=== PATIENT | female | born 1995 | race Caucasian/White ===

== ENCOUNTER 2024-02-18 16:46 | Inpatient (IN) | payer MEDICAID, SELFPAY ==
[2024-02-18] VITALS (29 sets, daily range): BP systolic 109–143; BP diastolic 58–92; PULSE 72–100; RESP 16–20; TEMP 36.9–37.2; O2SAT 88–100; BMI 27.6
--- NOTE | 2024-02-18 16:54 | HP.PCM.OB_ITS ---
HPI - General General Date of Admission: 02/18/24 Date of Service: 02/18/24 Chief Complaint: decreased movement HPI Narrative PAUL MARTÍNEZ, is a 28 F who presents with decreased movement for the last few days. Has not had any care this . Was seen in [place] on Jan 11. EDC by [facility]MP was 01/13/24. US in [place] stated per patient EDC of 02/02. Denies contractions, LOF or vaginal bleeding. Previous vaginal delivery x 3 at term. Cervix was 1-2 cm in [place]. Maternal Data Information Gestational age: 42 -45 PFSH PFSH Home Medications ?Medication ?Instructions ?Recorded ?Last Taken ?Type ferrous sulfate 325 mg (65 mg 325 mg PO DAILY 02/18/24 02/18/24 09:00 History iron) tablet (FeroSul) 325 mg vit no.95-ferrous 1 tab PO DAILY 02/18/24 02/18/24 09:00 History fumarate 28 mg-folic acid 800 mcg 1 TAB tablet () Allergy/AdvReac Type Severity Reaction Status Date / Time No Known Drug Allergies Allergy none Verified 02/18/24 16:57 History 4 Elective abortions Hx Para 3 Spontaneous abortions Hx # Term Pregnancies Ectopic pregnancies Hx # Pregnancies Multiple births # of living children NST FHR Rate Baby A Baseline: 130 Variability:: Moderate Accelerations:: 15 x 15 Decelerations:: None NST Reactive:: Yes FHR Category:: Category I Uterine Activity:: q 4 ROS Constitutional Constitutional: Denies fatigue, fever(s) or malaise Eyes Eyes: Denies change in vision ENT HEENT: Denies dizziness or headache(s) Cardiovascular Cardiovascular: Denies chest pain, dyspnea or lightheadedness Respiratory/Chest Respiratory/Chest: Denies cough or dyspnea Gastrointestinal Gastrointestinal: Denies change in bowel habits Genitourinary Genitourinary: Denies burning urination or genital lesions Integumentary Integumentary: Denies rash Neurologic Neurologic: Denies confusion, dizziness, headache(s), numbness or weakness Physical Exam Const alert and no apparent distress General Appearance: cooperative HEENT normocephalic Resp normal respiratory effort Cardio regular rate GI soft to palpation GI Narrative: gravid, nontender, appropriate for gestational age Extremity no calf tenderness General Extremity: edema Skin no wounds Rashes: No rashes noted Psych activity/motor behavior normal Labs Labs Labs: No Data to Display Assessment & Plan (1) Post-term beyond 42 weeks, antepartum: PLAN: unsure of exact dates (2) Decreased movement affecting management of mother, antepartum: QUALIFIERS: Fetus number: single or unspecified fetus Qualified Code(s): O36.8190 - Decreased movements, unspecified trimester, not applicable or unspecified PLAN: Plan Agreeable to induction of labor. Obtaining records [facility]
[2024-02-18] MEDS: 0.9% Saline Lock 10 ML Syringe IV (17:14)
[2024-02-18 17:28] LABS: Absolute Lymphocyte Count 2.19 X10^3/uL (0.83-4.51); Absolute Neutrophil Count 8.9 X10^3/uL (2.0-7.7); Basophil# 0.04 X10^3/uL; Basophil% 0.3 % (0-1); Eosinophil# 0.02 X10^3/uL; Eosinophils% 0.2 % (0-5); Hemoglobin 9.5 g/dL (12.0-15.0); Lymphocyte # 2.19 X10^3/ul (0.83-4.51); Lymphocyte % 18.6 % (19-41); Mean Corp Hgb Conc 30.6 g/dL (32-36); Mean Corpuscular Hgb 23.2 pg (27.0-32.0); Mean Corpuscular Volume 75.6 fL (81-99); Mean Platelet Vol. 9.7 fl (6.2-12.0); Monocyte# 0.43 X10^3/uL; Monocyte% 3.7 % (0-10); NRBC Flagged by Analyzer 0 % (0-5); Neutrophil # 8.94 X10^3/uL (2.7-7.7); Platelet Count 273 K/mm3 (150-450); RBC Distribution Width CV 17.8 % (11.6-14.6); RBC Distribution Width SD 47.9 fl (35.1-43.9); White Blood Count 11.8 K/mm3 (4.4-11.0)
--- NOTE | 2024-02-18 17:48 | PCM.PN.OB ---
Subjective Subjective Some records received from US on 01/18 with normal MIESHA, deepest pocket 8 cm and est gestation age of 36+5. Making her EDC 02/11 by 36 week US. RH negative Objective Data Objective Data Vital Signs: Weight: 70.9 kg Body Mass Index (BMI) 27.6 Lab / Micro Data 02/18/24 17:14 Labs: Laboratory Results - last 24 hr 02/18/24 17:14: WBC 11.8 H, RBC 4.10 L, Hgb 9.5 L, Hct 31.0 L, MCV 75.6 L, MCH 23.2 L, MCHC 30.6 L, RDW Std Deviation 47.9 H, RDW Coeff of Alejandro 17.8 H, Plt Count 273, MPV 9.7, Immature Gran % (Auto) 1.200 H, Neut % (Auto) 76.0 H, Lymph % (Auto) 18.6 L, Kleberg % (Auto) 3.7, Eos % (Auto) 0.2, Baso % (Auto) 0.3, Absolute Neuts (auto) 8.9 H, Absolute Lymphs (auto) 2.19, Nucleated RBC % 0 Assessment & Plan (1) Decreased movement affecting management of mother, antepartum: QUALIFIERS: Fetus number: single or unspecified fetus Qualified Code(s): O36.8190 - Decreased movements, unspecified trimester, not applicable or unspecified (2) Post-term beyond 42 weeks, antepartum:
--- NOTE | 2024-02-18 17:54 | NURSING ---
unknown edc-pt had only been seen at 35 and 36 weeks for labor that was stopped and was not being seen for care of by physician/icu clerk.
[2024-02-18 18:24] LABS: Syphilis Antibodies Non-reactive
--- NOTE | 2024-02-18 18:56 | PCM.PN.OB ---
Subjective Subjective Additional labs received from [facility]. GBS negative. labs normal. Vtx on bedside US 4 cm bulging bag on exam. Discussed plan. AROM and Pitocin will be necessary for labor progress. Does not want epidural. Hx of hemorrhage. Pitocin after delivery is needed. She is agreeable. AROM for clear fluid. Objective Data Objective Data Vital Signs: Vital Signs Temp Pulse Resp BP Pulse Ox 98.9 F 76 18 120/78 99 02/18/24 18:20 02/18/24 18:21 02/18/24 18:20 02/18/24 18:21 02/18/24 18:21 Weight: 70.9 kg Body Mass Index (BMI) 27.6 Lab / Micro Data 02/18/24 17:14 Labs: Laboratory Results - last 24 hr 02/18/24 17:14: WBC 11.8 H, RBC 4.10 L, Hgb 9.5 L, Hct 31.0 L, MCV 75.6 L, MCH 23.2 L, MCHC 30.6 L, RDW Std Deviation 47.9 H, RDW Coeff of Alejandro 17.8 H, Plt Count 273, MPV 9.7, Immature Gran % (Auto) 1.200 H, Neut % (Auto) 76.0 H, Lymph % (Auto) 18.6 L, Jerome % (Auto) 3.7, Eos % (Auto) 0.2, Baso % (Auto) 0.3, Absolute Neuts (auto) 8.9 H, Absolute Lymphs (auto) 2.19, Nucleated RBC % 0, Ur Drug Screen Comment , Syphilis Total Ab Non-reactive, Antibody Screen NEGATIVE Assessment & Plan (1) Decreased movement affecting management of mother, antepartum: QUALIFIERS: Fetus number: single or unspecified fetus Qualified Code(s): O36.8190 - Decreased movements, unspecified trimester, not applicable or unspecified (2) Post-term beyond 42 weeks, antepartum: (3) Hx of hemorrhage, currently : PLAN: Reviewed pp Pitocin
[2024-02-18 19:09] LABS: Amphetamine Urine VISTA NEGATIVE (<1000 ng/mL); Barbiturate Urine VISTA NEGATIVE (< 200 ng/mL); Benzodiazepine Urine VISTA NEGATIVE (< 200 ng/mL); Cocaine Urine VISTA NEGATIVE (< 300 ng/mL); Ecstacy Urine VISTA NEGATIVE (< 500 ng/mL); Methadone Urine VISTA NEGATIVE (< 300 ng/mL); PCP Urine VISTA NEGATIVE (< 25 ng/mL); THC Urine VISTA NEGATIVE (< 50 ng/mL); Vista UDS pH Range 6
[2024-02-18 21:11] LABS: Hepatitis B Surface Antigen Non-Reactive (Nonreactive); Hepatitis C Antibody Non-Reactive (Nonreactive)
[2024-02-18] MEDS: Lactated Ringers 1,000 ML 999 ML IV (22:25)
[2024-02-18] MEDS: fentaNYL-bupivacaine (epidural) 100 ML BAG EPIDURAL (22:59)
[2024-02-18] MEDS: Oxytocin 15 Units/NS 250ml 15 UNITS/250 ML IV.SOLN 334 UNITS IV (23:47)
--- NOTE | 2024-02-18 23:55 | EX.PCM.OBRPT ---
Assessment & Plan (1) (spontaneous vaginal delivery): Maternal Data Information Final MAXIMINO: 02/12/24 Gestational age: 41 Vaginal Delivery Maternal Presentation Maternal Presentation: Active Labor Maternal Presentation: Presented with decreased movement and no care. EDC uncertain 45 weeks by LMP and 41 weeks by 36+5 week US Type of Induction: Amniotomy Medical Reason for Induction: Post term Operative Information Date of Procedure: 02/18/24 Pre-Operative Diagnosis: term Post-Operative Diagnosis: Surgery / Procedure Performed: Spontaneous Vaginal Delivery Estimated Blood Loss: 100 cc Time of Delivery: 23:43 Findings Description of Procedure: Progressed to complete after AROM. Pushed over an intact perineum and delivered the head POORNIMA followed quickly by the anterior and posterior shoulders. The infant cried on delivery. There was terminal meconium. The was placed on the maternal abdomen. The cord was clamped and cut. Cord blood was collected. The placenta delivered with manual traction. There were no lacerations. Presentation: Vertex and POORNIMA Amniotic Membrane Rupture Type: Artificial Amniotic Fluid Description: Clear Placental Delivery Description: Spontaneous Placenta Disposition: [facility] Cord Vessel Description: 3 Vessels Cord Entanglement: None A Gender: Male (1 minute): 8 (5 minute): 9 Delayed Cord Clamping: Yes Post Vaginal Delivery Medications Given After Delivery: IV Pitocin Episiotomy Description: None Laceration: None Complication Complications: None
[2024-02-19] VITALS (53 sets, daily range): BP systolic 98–129; BP diastolic 57–90; PULSE 67–90; RESP 16–18; TEMP 36.6–37; O2SAT 92–99
[2024-02-19] MEDS: Oxytocin 10 UNITS/ML Vial IM (00:10)
[2024-02-19] MEDS: Acetaminophen 500 MG Tablet PO ×2 (05:11→11:31)
--- NOTE | 2024-02-19 07:09 | PCM.PN.OB ---
Subjective Subjective Doing well. Ambulating and voiding without difficulty. Mild lochia. Breast feeding. Objective Data Objective Data Vital Signs: Vital Signs Temp Pulse Resp BP Pulse Ox O2 Del Method 98.2 F 79 17 109/71 97 Room Air 02/19/24 04:39 02/19/24 04:39 02/19/24 04:39 02/19/24 04:39 02/19/24 04:39 02/19/24 04:39 Oxygen Delivery Method Room Air Weight: 70.9 kg Body Mass Index (BMI) 27.6 Intake & Output: Intake and Output for Last 24 Hours 02/17/24 02/18/24 02/19/24 23:59 23:59 23:59 Intake Total 400 / 400 Output Total 700 / 700 Balance -300 / -300 Lab / Micro Data 02/18/24 17:14 Labs: Laboratory Results - last 24 hr 02/18/24 17:14: WBC 11.8 H, RBC 4.10 L, Hgb 9.5 L, Hct 31.0 L, MCV 75.6 L, MCH 23.2 L, MCHC 30.6 L, RDW Std Deviation 47.9 H, RDW Coeff of Alejandro 17.8 H, Plt Count 273, MPV 9.7, Immature Gran % (Auto) 1.200 H, Neut % (Auto) 76.0 H, Lymph % (Auto) 18.6 L, Patrick % (Auto) 3.7, Eos % (Auto) 0.2, Baso % (Auto) 0.3, Absolute Neuts (auto) 8.9 H, Absolute Lymphs (auto) 2.19, Nucleated RBC % 0, Urine Opiates Screen NEGATIVE, Urine Methadone Screen NEGATIVE, Ur Barbiturates Screen NEGATIVE, Ur Phencyclidine Scrn NEGATIVE, Ur Amphetamines Screen NEGATIVE, MDMA (Ecstasy) Screen NEGATIVE, U Benzodiazepines Scrn NEGATIVE, Urine Cocaine Screen NEGATIVE, U Cannabinoids Screen NEGATIVE, Ur Drug Screen Comment , Syphilis Total Ab Non-reactive, Hep Bs Antigen Non-Reactive, Hepatitis C Antibody Non-Reactive, Antibody Screen NEGATIVE ROS Constitutional Constitutional: Denies fatigue, fever(s) or malaise Eyes Eyes: Denies change in vision ENT HEENT: Denies dizziness or headache(s) Cardiovascular Cardiovascular: Denies chest pain, dyspnea or lightheadedness Respiratory/Chest Respiratory/Chest: Denies cough or dyspnea Gastrointestinal Gastrointestinal: Denies change in bowel habits Genitourinary Genitourinary: Denies burning urination or genital lesions Integumentary Integumentary: Denies rash Neurologic Neurologic: Denies confusion, dizziness, headache(s), numbness or weakness Physical Exam Const alert and no apparent distress Narrative: Fundus firm, below umbilicus. Assessment & Plan (1) (spontaneous vaginal delivery): (2) No care in current : QUALIFIERS: Trimester: third trimester Qualified Code(s): O09.33 - Supervision of with insufficient care, third trimester (3) Hx of hemorrhage, currently : PLAN: Plan Routine
[2024-02-19] MEDS: Rho(D) Immune Globulin 300 MCG (1500 Unit) Syringe IV (15:06)
[2024-02-19] MEDS: Ibuprofen 600 MG Tablet PO (17:14)
[2024-02-19] MEDS: Acetaminophen 500 MG Tablet 1000 MG PO (20:19)
[2024-02-20] VITALS (7 sets, daily range): BP systolic 101–112; BP diastolic 55–70; PULSE 67–83; RESP 16; TEMP 36.7–36.8; O2SAT 97–98
[2024-02-20] MEDS: Ibuprofen 600 MG Tablet PO ×3 (00:05→12:01)
--- NOTE | 2024-02-20 08:50 | PCM.PN.OB ---
Subjective Subjective Denies complaints Objective Data Objective Data Vital Signs: Vital Signs Temp Pulse Resp BP Pulse Ox O2 Del Method 98.1 F 78 16 112/55 L 97 Room Air 02/20/24 07:49 02/20/24 07:39 02/20/24 07:49 02/20/24 07:49 02/20/24 04:01 02/20/24 03:55 Oxygen Delivery Method Room Air Weight: 156 lb 4.924 oz Body Mass Index (BMI) 27.6 Intake & Output: Intake and Output for Last 24 Hours 02/18/24 02/19/24 02/20/24 23:59 23:59 23:59 Intake Total 1000 / 1000 650 / 650 Output Total 700 / 700 Balance 1000 / 1000 -50 / -50 Lab / Micro Data 02/18/24 17:14 Labs: Laboratory Results - last 24 hr 02/19/24 06:05: Screen NEGATIVE, Baby's Blood Type O POSITIVE, Baby's MARIA G NEGATIVE Physical Exam Const alert, oriented x3 and no apparent distress HEENT normocephalic GI soft to palpation, non-tender and non-distended GI Narrative: fundus firm, mid & below umbilicus Extremity normal to inspection and no calf tenderness Assessment & Plan (1) (spontaneous vaginal delivery): COMMENT: PPD#2 (2) No care in current : QUALIFIERS: Trimester: third trimester Qualified Code(s): O09.33 - Supervision of with insufficient care, third trimester PLAN: D/c home
--- NOTE | 2024-02-20 08:52 | PCM.DC.SUM ---
Providers Date of Admission: 02/18/24 Reason For Visit: VAGINAL DELIVERY Diagnosis Discharge Diagnosis (1) (spontaneous vaginal delivery): Status: Acute Code(s): O80 - Encounter for full-term uncomplicated delivery (2) No care in current : Status: Acute Code(s): O09.30 - Supervision of with insufficient care, unspecified trimester Qualifiers: Trimester: third trimester Qualified Code(s): O09.33 - Supervision of with insufficient care, third trimester Plan: D/c home Medications at Discharge Home Medications ferrous sulfate 325 mg (65 mg iron) tablet (FeroSul) 325 mg PO DAILY 02/18/24 vit no.95-ferrous fumarate 28 mg-folic acid 800 mcg tablet () 1 tab PO DAILY 02/18/24 acetaminophen 500 mg tablet 1,000 mg (2 x 500 mg) PO Q6H PRN PRN Pain 1-10 Or Fever #0 tabs 02/20/24 ibuprofen 600 mg tablet 600 mg PO Q6H PRN PRN Pain Score 1-10 #0 tabs 02/20/24 Hospital Course Operations None Summary of Care Provided Minutes Spent on Discharge: 20 Weight / BMI Weight Weight: 156 lb 4.924 oz Body Mass Index (BMI) 27.6 ABG / Lab / Microbiology Data 02/18/24 17:14 Laboratory: Laboratory Results - last 24 hr 02/19/24 06:05: Screen NEGATIVE, Baby's Blood Type O POSITIVE, Baby's MARIA G NEGATIVE D/C Instructions May resume sexual activity in: 6 weeks Weight Bearing Status: Weight bearing as tolerated Call your doctor if you observe: Fever of 101 or Higher, Coldness, Increased Pain, Change in Color, Inability to urinate, Inability to have a bowel movement, Using more than 1 pad per hour, Shortness of breath, Dizziness, Fainting spells, Chest pain, Increased palpitations (irregular heartbeat), Calf discomfort and Uncontrolled pain Please Follow Up With: Bear Flores MD When: Follow up in 2 and 6 weeks for visits. Meaningful Use Info Meaningful Use Meaningful Use Diagnoses (Choose all that apply): None applicable Ischemic Stroke Statin Dosing Therapy Reference: STATIN DOSE THERAPY REFERENCE: * Patients > 75 years receive moderate or high dose statin therapy. * Patients 75 years or YOUNGER should receive HIGH intensity statin dose unless contraindicated. You will be required to document reason for non-treatment if statin daily dose does not meet guidelines. HIGH DOSE STATIN THERAPY DAILY Atorvastatin > than or = to 40 mg Rosuvastatin > than or = to 20 mg Amlodipine + Atorvastatin > than or = to 2.5/40 mg Ezetimibe + Simvastatin 10/80 mg Simvastatin 80mg Discharge Plan Admission Admit Date/Time: 02/18/24 16:46 Primary Reason for Your Visit: Vaginal delivery Attending Provider: Sheree Cuevas Discharge Orders/Prescriptions Prescriptions: New acetaminophen 500 mg Tablet 1,000 mg PO Q6H PRN PRN (Reason: Pain 1-10 Or Fever) Qty: 0 0RF ibuprofen 600 mg Tablet 600 mg PO Q6H PRN PRN (Reason: Pain Score 1-10) Qty: 0 0RF Continued PNV cmb#95-ferrous fumarate-FA [] 28 mg iron- 800 mcg tablet 1 tab PO DAILY ferrous sulfate [FeroSul] 325 mg (65 mg iron) tablet 325 mg PO DAILY Disposition Disposition (needs filled in before D/C Order can be placed): Home, Self Care
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
== END 2024-02-20 13:00 | disposition home or self-care (01) | DRG 560 ==
LOC: MEDOUTP 16:51 → WP 16:51
PROVIDERS: Admitting Provider Obstetrics & Gynecology; Referring Provider Obstetrics & Gynecology; Visit Provider Obstetrics & Gynecology
DX: O36.8130 Decreased fetal movements, third trimester, not applicable or unspecified (principal); Z37.0 Single live birth; O48.0 Post-term pregnancy; Z3A.41 41 weeks gestation of pregnancy; Z59.82 Transportation insecurity; Z59.71 Insufficient health insurance coverage; Z63.0 Problems in relationship with spouse or partner; Z91.410 Personal history of adult physical and sexual abuse; Z87.59 Personal history of other complications of pregnancy, childbirth and the puerperium
CPT/HCPCS: 59025; 59050; 76815; 80307; 85025; 85461; 86780; 86803; 86850; 86900; 86901; 87340; 90384; 99221; J7120; A4216; G0378; J2790; J2791